=== PATIENT | female | born 1950 | race Caucasian/White ===

== ENCOUNTER → 2016-05-06 | Outpatient (CLI) | payer BC ==
[~2016-05-06] MED LIST: FRRG PO; FRRS300 PO; LISI20TA PO; OXYC1TAB3 PO; POTA10CA28 PO; PRM/45 PO; REVIEWED; SYN125 PO
[2016-05-06 09:52] LABS: BASO % 0.5 %; BASO ABS # 0.03 K/uL (0-0.2); COMPLETE YES; EOS % 2.7 %; HEMATOCRIT 40.8 % (37-47); IG% 1.4 %; LYMPH % 40.6 %; LYMPH ABS # 2.38 K/uL (1.2-3.4); MEAN CELL VOLUME 89.1 fL (80-100); MEAN CORPUSCULAR HEMOGLOBIN 31.4 pg (25-34); MEAN CORPUSCULAR HGB CONC 35.3 g/dl (32-36); MEAN PLATELET VOLUME 10.3 fL (7.4-10.4); MONO % 6.3 %; NEUT % 48.5 %; PLATELET COUNT 308 K/uL (130-400); RED BLOOD COUNT 4.58 M/uL (4.2-5.4); WHITE BLOOD COUNT 5.86 K/uL (4.8-10.8)
[2016-05-06 10:03] LABS: ESTIMATED AVERAGE GLUCOSE 114 mg/dl; HA1C FLAG Normal (Normal)
[2016-05-06 10:36] LABS: INSULIN FASTING 9.6 mU/L (3-25)
[2016-05-06 10:38] LABS: PROGESTERONE < 0.21 ng/mL
[2016-05-06 10:52] LABS: ALT/SGPT 36 U/L (12-78); AST/SGOT 18 U/L (15-37); BLOOD UREA NITROGEN 13 mg/dl (7-18); BUN/CREATININE RATIO 18.7 (10-20); CALCIUM 9.4 mg/dl (8.5-10.1); CARBON DIOXIDE 24 mmol/L (21-32); CHLORIDE 105 mmol/L (98-107); CREATININE 0.71 mg/dl (0.60-1.20); GLUCOSE 104 mg/dl (70-99); POTASSIUM 3.8 mmol/L (3.5-5.1); SODIUM 142 mmol/L (136-145)
[2016-05-06 11:02] LABS: ALB/GLOB RATIO 1.2 (0.9-2); ALKALINE PHOSPHATASE 69 U/L (45-117)
== END | disposition home or self-care (01) ==
LOC: C.LAB 07:14
PROVIDERS: ATTEND General Practice
DX: A69.20 Lyme disease, unspecified (principal); E11.00 Type 2 diabetes mellitus with hyperosmolarity without nonketotic hyperglycemic-hyperosmolar coma (NKHHC); E03.2 Hypothyroidism due to medicaments and other exogenous substances; N95.9 Unspecified menopausal and perimenopausal disorder; E55.9 Vitamin D deficiency, unspecified

== ENCOUNTER → 2016-07-27 | Outpatient (CLI) | payer BC ==
[2016-07-27 09:22] LABS: BASO % 0.6 %; BASO ABS # 0.03 K/uL (0-0.2); COMPLETE YES; EOS % 3.5 %; HEMATOCRIT 40.2 % (37-47); IG% 0.6 %; LYMPH % 39.2 %; LYMPH ABS # 1.91 K/uL (1.2-3.4); MEAN CELL VOLUME 87.8 fL (80-100); MEAN CORPUSCULAR HEMOGLOBIN 30.6 pg (25-34); MEAN CORPUSCULAR HGB CONC 34.8 g/dl (32-36); MEAN PLATELET VOLUME 10.6 fL (7.4-10.4); NEUT % 48.1 %; PLATELET COUNT 242 K/uL (130-400); RED BLOOD COUNT 4.58 M/uL (4.2-5.4); WHITE BLOOD COUNT 4.87 K/uL (4.8-10.8)
[2016-07-27 09:32] LABS: ALT/SGPT 28 U/L (12-78); AST/SGOT 17 U/L (15-37); BLOOD UREA NITROGEN 15 mg/dl (7-18); BUN/CREATININE RATIO 18.7 (10-20); CARBON DIOXIDE 28 mmol/L (21-32); CHLORIDE 103 mmol/L (98-107); CREATININE 0.78 mg/dl (0.60-1.20); GLUCOSE 106 mg/dl (70-99); POTASSIUM 3.6 mmol/L (3.5-5.1); SODIUM 140 mmol/L (136-145)
[2016-07-27 09:42] LABS: ALB/GLOB RATIO 1.2 (0.9-2); ALKALINE PHOSPHATASE 62 U/L (45-117); THYROID STIMULATING HORMONE 0.206 uIu/ml (0.300-4.500)
[2016-07-27 10:54] LABS: ESTIMATED AVERAGE GLUCOSE 114 mg/dl; HA1C FLAG Normal (Normal)
== END | disposition home or self-care (01) ==
LOC: C.LAB 07:02
PROVIDERS: ATTEND General Practice
DX: A69.20 Lyme disease, unspecified (principal); E72.11 Homocystinuria; E11.00 Type 2 diabetes mellitus with hyperosmolarity without nonketotic hyperglycemic-hyperosmolar coma (NKHHC); E03.2 Hypothyroidism due to medicaments and other exogenous substances

== ENCOUNTER → 2016-11-04 | Outpatient (CLI) | payer BC ==
[2016-11-04 09:34] LABS: BASO % 0.7 %; BASO ABS # 0.03 K/uL (0-0.2); COMPLETE YES; EOS % 3.6 %; HEMATOCRIT 41.6 % (37-47); IG% 0.4 %; LYMPH % 39.1 %; LYMPH ABS # 1.75 K/uL (1.2-3.4); MEAN CELL VOLUME 89.3 fL (80-100); MEAN CORPUSCULAR HEMOGLOBIN 30.3 pg (25-34); MEAN CORPUSCULAR HGB CONC 33.9 g/dl (32-36); MEAN PLATELET VOLUME 10.4 fL (7.4-10.4); MONO % 9.2 %; PLATELET COUNT 243 K/uL (130-400); RED BLOOD COUNT 4.66 M/uL (4.2-5.4); WHITE BLOOD COUNT 4.48 K/uL (4.8-10.8)
[2016-11-04 09:47] LABS: ALB/GLOB RATIO 1.2 (0.9-2); ALT/SGPT 35 U/L (12-78); AST/SGOT 18 U/L (15-37); BLOOD UREA NITROGEN 16 mg/dl (7-18); BUN/CREATININE RATIO 24.3 (10-20); CARBON DIOXIDE 26 mmol/L (21-32); CHLORIDE 109 mmol/L (98-107); CREATININE 0.66 mg/dl (0.60-1.20); GLUCOSE 104 mg/dl (70-99); SODIUM 141 mmol/L (136-145)
[2016-11-04 09:48] LABS: ALKALINE PHOSPHATASE 70 U/L (45-117)
[2016-11-04 09:56] LABS: ESTIMATED AVERAGE GLUCOSE 108 mg/dl; HA1C FLAG Normal (Normal)
[2016-11-04 10:12] LABS: INSULIN FASTING 17.6 mU/L (3-25)
[2016-11-08 14:03] LABS: CYTOMEGALOVIRUS IGG AB >10.00 U/ML; TESTOSTERONE,TOTAL 11 ng/dL (2-45)
== END | disposition home or self-care (01) ==
LOC: C.LAB 07:11
PROVIDERS: ATTEND General Practice
DX: E55.9 Vitamin D deficiency, unspecified (principal); B25.9 Cytomegaloviral disease, unspecified; A69.20 Lyme disease, unspecified; E72.11 Homocystinuria; E11.00 Type 2 diabetes mellitus with hyperosmolarity without nonketotic hyperglycemic-hyperosmolar coma (NKHHC); N95.9 Unspecified menopausal and perimenopausal disorder

== ENCOUNTER → 2016-12-07 | Outpatient (CLI) | payer BC | END | disposition home or self-care (01) | LOC: C.PAPS 14:08 | PROVIDERS: ATTEND Obstetrics & Gynecology | DX: Z01.419 Encounter for gynecological examination (general) (routine) without abnormal findings (principal) ==

== ENCOUNTER 2017-05-05 22:16 | Inpatient (IN) | payer OTHER ==
[~2017-05-05] VITALS: Ht 149.9 cm; Wt 67.9 kg
[2017-05-05] MEDS ORDERED: ASPIRIN 81 MG CHEW PO STA (22:29)
[2017-05-05] MEDS ORDERED: NITROGLYCERIN 0.4 MG SL PER TAB CHARGE ONE (22:30)
[2017-05-05] MEDS: NITROGLYCERIN 0.4 MG SL PER TAB CHARGE SL PRN ×2 (22:34→22:52)
--- NOTE | 2017-05-05 22:50 | EMERGENCY ROOM VISIT NOTE ---
History Report prepared by Inge: Rafael Guerra Under the Supervision of: Dr. Marily Doan M.D. First contact with patient: 22:29 Chief Complaint: CARDIAC ASSESSMENT Stated Complaint: CHEST PAINS History of Present Illness The patient is a 66 year old female who presents to the Emergency Room with complaints of constant left-sided chest pain beginning a few hours ago. The patient states she had a chemical stress test today, and it went great. She reports afterwards she developed left-sided chest pain. The patient notes she called her box hinge and lock attacher, and the test was read to show some ischemia. She states she was told to come to the ED immediately. The patient reports she received nitroglycerin, and it helped. She states she took Advil without relief. She notes her sister has had to have a stent placed. The patient denies a history of smoking, swelling in her legs, and pain during her stress test. Source of History: patient Onset: few hours ago Position: chest (left) Timing: constant Modifying Factors (Relieving): other (nitroglycerin) Note: Denies: swelling in her legs, pain during her stress test Review of Systems See HPI for pertinent positives & negatives. A total of 10 systems reviewed and were otherwise negative. Past Medical & Surgical Medical Problems: (1) Heart disease (2) HTN (hypertension) Family History Cancer Heart disease Hypertension Social History Smoking Status: Former Smoker Smokeless Tobacco Use: No Alcohol Use: none Marital Status: Housing Status: lives with significant other Occupation Status: employed Current/Historical Medications Scheduled Ascorbic Acid (Vitamin C), 2,000 MG PO DAILY Cholecalciferol (Vitamin D3), 5,000 CAP PO DAILY Ferrous Fumarate (Ferrimin 150), 150 MG PO DAILY Hctz/Lisinopril (PRINZIDE 20/12.5 Mg), 1 TAB PO BID Levothyroxine Sodium (Synthroid), 112 MCG PO DAILY Magnesium Oxide (Mg Supplement (Magnesium), 1,000 MG PO DAILY Potassium Chloride (Micro-K Ext Rel), 20 MEQ PO DAILY Turmeric (Curcuma Longa) (Turmeric), 1 TAB PO DAILY Allergies Coded Allergies: Codeine (Verified Allergy, Severe, "COULDN'T SLEEP FOR 3 DAYS-HYPER"., 03/12) [place] Blue FCF (Verified Allergy, Unknown, "CAN'T REMEMBER", 05/05/17) Erythrosine Red No. 3 (Verified Allergy, Unknown, "CAN'T REMEMBER", ) Guaifenesin (Verified Allergy, Unknown, "CAN'T REMEMBER", 05/05/17) Pseudoephedrine (Verified Allergy, Unknown, "CAN'T REMEMBER", 05/05/17) Physical Exam Vital Signs Date Time Temp Pulse Resp B/P (MAP) Pulse Ox O2 Delivery O2 Flow Rate FiO2 05/06/17 01:16 57 14 94 05/06/17 01:00 110/75 05/06/17 00:46 56 14 93 05/06/17 00:30 133/68 05/06/17 00:16 55 15 94 05/06/17 00:00 65 20 149/73 94 Room Air 05/06/17 00:00 149/73 05/05/17 23:46 59 21 95 05/05/17 23:30 120/67 05/05/17 23:16 57 18 94 05/05/17 23:00 124/87 05/05/17 22:57 66 20 157/77 Room Air 05/05/17 22:55 Room Air 05/05/17 22:46 66 18 96 05/05/17 22:39 63 05/05/17 22:33 157/77 05/05/17 22:20 36.6 62 20 174/84 96 Room Air Physical Exam Vital signs reviewed. General: Well-appearing 66 year old female, in no significant distress. HEENT: No scleral icterus, PERRLA, neck supple. Atraumatic. Cardiovascular: Regular rate and rhythm, no extra sounds. Pulmonary: Clear to auscultation bilaterally, normal work of breathing. Abdomen: Soft, nontender, nondistended, positive bowel sounds. Musculoskeletal: Atraumatic, no peripheral edema. Neurologic: Patient awake alert and oriented x 3 Skin: Warm, dry, no rash Medical Decision & Procedures ER Provider Diagnostic Interpretation: X-ray results as stated below per interpretation by me and the radiologist: CHEST ONE VIEW PORTABLE CLINICAL HISTORY: chest pain dyspnea COMPARISON STUDY: 04/16/2013 FINDINGS: The bones soft tissues and hemidiaphragms are normal. The cardiomediastinal silhouette is normal. The lungs are clear. The pulmonary vasculature is normal. IMPRESSION: Negative chest. The above report was generated using voice recognition software. It may contain grammatical, syntax or spelling errors. Electronically signed by: Shen Triplett M.D. 05/05/2017 10:48 PM Dictated Date/Time: 05/05/2017 10:48 PM Laboratory Results 05/05/17 22:45 Test 05/05/17 22:45 05/05/17 22:51 Immature Granulocyte % (Auto) 0.4 % White Blood Count 8.54 K/uL (4.8-10.8) Red Blood Count 4.57 M/uL (4.2-5.4) Hemoglobin 14.0 g/dL (12.0-16.0) Hematocrit 41.1 % (37-47) Mean Corpuscular Volume 89.9 fL (80-100) Mean Corpuscular Hemoglobin 30.6 pg (25-34) Mean Corpuscular Hemoglobin Concent 34.1 g/dl (32-36) Platelet Count 305 K/uL (130-400) Mean Platelet Volume 10.2 fL (7.4-10.4) Neutrophils (%) (Auto) 63.6 % Lymphocytes (%) (Auto) 26.6 % Monocytes (%) (Auto) 6.7 % Eosinophils (%) (Auto) 2.2 % Basophils (%) (Auto) 0.5 % Neutrophils # (Auto) 5.44 K/uL (1.4-6.5) Lymphocytes # (Auto) 2.27 K/uL (1.2-3.4) Monocytes # (Auto) 0.57 K/uL (0.11-0.59) Eosinophils # (Auto) 0.19 K/uL (0-0.5) Basophils # (Auto) 0.04 K/uL (0-0.2) Immature Granulocyte # (Auto) 0.03 K/uL (0.00-0.02) Prothrombin Time 10.0 SECONDS (9.0-12.0) Prothromb Time International Ratio 1.0 (0.9-1.1) Anion Gap 4.0 mmol/L (3-11) Est Creatinine Clear Calc Drug Dose 53.1 ml/min Estimated GFR () 79.9 Estimated GFR (Non- 68.9 BUN/Creatinine Ratio 21.1 (10-20) Calcium Level 9.0 mg/dl (8.5-10.1) Total Bilirubin 0.2 mg/dl (0.2-1) Direct Bilirubin < 0.1 mg/dl (0-0.2) Aspartate Amino Transf (AST/SGOT) 18 U/L (15-37) Alanine Aminotransferase (ALT/SGPT) 47 U/L (12-78) Alkaline Phosphatase 80 U/L (45-117) Total Protein 6.9 gm/dl (6.4-8.2) Albumin 3.7 gm/dl (3.4-5.0) Bedside Troponin I < 0.030 ng/ml (0-0.045) Laboratory results per my review. Medications Administered Medications (Trade) Dose Ordered Sig/Andrew Route Start Time Stop Time Status Last Admin Dose Admin Aspirin (Aspirin Chew) 324 mg NOW STAT PO 05/05/17 22:29 05/05/17 22:32 DC 05/05/17 22:54 324 MG Nitroglycerin (Nitrostat Tab) 0.4 mg Q5M PRN SL 05/05/17 22:30 05/06/17 03:28 DC 05/05/17 22:52 0.4 MG ECG Indication: chest pain Rate (beats per minute): 60 Rhythm: normal sinus Findings: other (ST change in the anterior leads, likely previous anterior infarct) Comparison ECG Date: 04/16/13 Change: no significant change ED Course 224: Past medical records reviewed. The patient was evaluated in room V09. A complete history and physical examination was performed. 9: Ordered Aspirin 324mg PO 2230: Ordered Nitroglycerin 0.4mg SL 2349: Upon reevaluation, the patient is resting comfortably. I discussed laboratory and radiographic results with her. She verbalized agreement of the treatment plan. The patient will be evaluated for further management and care. 0008: I discussed the patient's case with Dr. Thapa, [facility] Hospitalist. The patient will be evaluated for further management and care. Medical Decision Chest pain: Acute coronary syndrome, pulmonary embolus, aortic dissection, musculoskeletal pain, pneumonia, pleural effusion, pneumothorax This pt was evaluated and seemed anxious, but in no distress. IV access was obtained and lab work was drawn. PT was placed on the cardiac cath tech. EKG reveals no acute changes. There is no elevation of the troponin. CXR is clear. Pt did receive ASA in the ED. A NTG did relieve a mild discomfort. Given recent abnl stress test outpt [facility] pt was d/w the hospitalist for further management. She is aware of the plan and agrees. Medication Reconcilliation Current Medication List: was personally reviewed by me Blood Pressure Screening Patient's blood pressure: Elevated blood pressure Monitored by hospitalist. Consults Time Called: [phone] Consulting Physician: Dr. Thapa, [facility] Hospitalist Returned Call: [phone] I discussed the patient's case with Dr. Thapa, [facility] Hospitalist. The patient will be evaluated for further management and care. Impression Primary Impression: Substernal chest pain Additional Impression: Abnormal nuclear stress test Scribe Attestation The scribe's documentation has been prepared under my direction and personally reviewed by me in its entirety. I confirm that the note above accurately reflects all work, treatment, procedures, and medical decision making performed by me. Departure Information Dispostion Being Evaluated By Hospitalist Referrals Sriram Beckman Jr,D.O. (PCP) Patient Instructions [facility] Problem Qualifiers
[2017-05-05 23:05] LABS: BASO % 0.5 %; BASO ABS # 0.04 K/uL (0-0.2); EOS % 2.2 %; EOS ABS # 0.19 K/uL (0-0.5); HEMATOCRIT 41.1 % (37-47); IG# 0.03 K/uL (0.00-0.02); LYMPH % 26.6 %; LYMPH ABS # 2.27 K/uL (1.2-3.4); MEAN CELL VOLUME 89.9 fL (80-100); MEAN CORPUSCULAR HEMOGLOBIN 30.6 pg (25-34); MEAN CORPUSCULAR HGB CONC 34.1 g/dl (32-36); MEAN PLATELET VOLUME 10.2 fL (7.4-10.4); MONO % 6.7 %; MONO ABS # 0.57 K/uL (0.11-0.59); NEUT % 63.6 %; NEUT ABS # 5.44 K/uL (1.4-6.5); PLATELET COUNT 305 K/uL (130-400); RED CELL DISTRIBUTION WIDTH CV 12.6 % (11.5-14.5); RED CELL DISTRIBUTION WIDTH SD 41.2 fL (36.4-46.3); WHITE BLOOD COUNT 8.54 K/uL (4.8-10.8)
[2017-05-05] MEDS ORDERED: CHOLCAP5 PO (23:25)
[2017-05-05] MEDS ORDERED: LSN/20125 PO (23:25)
[2017-05-05] MEDS ORDERED: LEVO112T2 PO (23:25)
[2017-05-05] MEDS ORDERED: TURM500T PO (23:25)
[2017-05-05] MEDS ORDERED: MAGN500T4 PO (23:25)
[2017-05-05] MEDS ORDERED: ASCO10003 PO (23:25)
[2017-05-05] MEDS ORDERED: FERRTAB6 PO (23:25)
[2017-05-05 23:26] LABS: ALBUMIN 3.7 gm/dl (3.4-5.0); ALT/SGPT 47 U/L (12-78); AST/SGOT 18 U/L (15-37); BLOOD UREA NITROGEN 18 mg/dl (7-18); CARBON DIOXIDE 31 mmol/L (21-32); CREATININE 0.87 mg/dl (0.60-1.20); GLUCOSE 125 mg/dl (70-99); POTASSIUM 3.5 mmol/L (3.5-5.1); SODIUM 140 mmol/L (136-145)
[2017-05-05 23:31] LABS: ALKALINE PHOSPHATASE 80 U/L (45-117); CKMB 2.9 ng/ml (0.5-3.6); TOTAL PROTEIN 6.9 gm/dl (6.4-8.2)
[2017-05-06] VITALS (8 sets, daily range): BP systolic 113–147; BP diastolic 67–82; PULSE 56–74; TEMP 36.2–36.6; O2SAT 94–96; Ht 149.9 cm; Wt 67.9 kg
[2017-05-06] MEDS ORDERED: ACETAMINOPHEN 325 MG TAB PO PRN (02:00)
[2017-05-06] MEDS ORDERED: NITROGLYCERIN 0.4 MG SL PER TAB CHARGE SL PRN (02:00)
[2017-05-06] MEDS ORDERED: HEPARIN 25000 UNIT/500 ML D5W ONE (02:09)
[2017-05-06 02:32] LABS: PTT PATIENT 26.3 SECONDS (21.0-31.0)
[2017-05-06] MEDS: NITROGLYCERIN 2% OINTMENT 30GM TUBE EXT SCH ×4 (03:38→22:00)
[2017-05-06] MEDS ORDERED: IV FLUIDS COMPLETED PRN (03:45)
[2017-05-06 04:35] LABS: CKMB 2.3 ng/ml (0.5-3.6)
--- NOTE | 2017-05-06 04:56 | History and Physical ---
History & Physical Date & Time of Service: May 06, 2017 at 04:45 Chief Complaint: Abnormal Nuclear Stress Test,Substernal Chest Pain Primary Care Physician: Sriram Beckman Jr,D.O. History of Present Illness Source: patient, hospital records The patient is a 66-year-old female who had a chemical stress test performed earlier in the day by clinical nurse educator Dr. Smith, that she felt had gone well. Later in the day, she developed severe left sided chest pain, had then called her clinical nurse educator, who then referred her to the ED immediately after reviewing the above-mentioned stress test and reportedly had an abnormal finding. The patient did receive nitroglycerin in the ED, that she reports did help. Earlier in the day she had taken Advil without relief. She does have a family history of a sister who had to have a coronary artery stent placed. Past Medical/Surgical History Medical Problems: (1) Heart disease Status: Chronic (2) HTN (hypertension) Status: Chronic Family History Cancer Heart disease Hypertension Social History Smoking Status: Never Smoker Smokeless Tobacco Use: No Alcohol Use: none Drug Use: none Marital Status: Housing status: lives with family Occupational Status: employed Immunizations History of Influenza Vaccine: Unknown History of Tetanus Vaccine?: Unknown History of Pneumococcal: Unknown History of Hepatitis B Vaccine: Unknown Multi-Drug Resistant Organisms History of MDRO: No Allergies Coded Allergies: Codeine (Verified Allergy, Severe, "COULDN'T SLEEP FOR 3 DAYS-HYPER"., 03/12) [place] Blue FCF (Verified Allergy, Unknown, "CAN'T REMEMBER", 05/05/17) Erythrosine Red No. 3 (Verified Allergy, Unknown, "CAN'T REMEMBER", ) Guaifenesin (Verified Allergy, Unknown, "CAN'T REMEMBER", 05/05/17) Pseudoephedrine (Verified Allergy, Unknown, "CAN'T REMEMBER", 05/05/17) Home Medications Scheduled Ascorbic Acid (Vitamin C), 2,000 MG PO DAILY Cholecalciferol (Vitamin D3), 5,000 CAP PO DAILY Ferrous Fumarate (Ferrimin 150), 150 MG PO DAILY Hctz/Lisinopril (PRINZIDE 20/12.5 Mg), 1 TAB PO BID Levothyroxine Sodium (Synthroid), 112 MCG PO DAILY Magnesium Oxide (Mg Supplement (Magnesium), 1,000 MG PO DAILY Potassium Chloride (Micro-K Ext Rel), 20 MEQ PO DAILY Turmeric (Curcuma Longa) (Turmeric), 1 TAB PO DAILY Review of Systems The patient denies palpitations, shortness of breath, dyspnea on exertion, cough , lower extremity swelling, sore throat, fevers, chills, sweats, weight change, fatigue, nausea, vomiting, diarrhea , constipation, abdominal pain, pelvic pain, blood in urine or stool, dysuria, urinary frequency or urgency, lightheadedness , dizziness, headache, memory loss, loss of consciousness, rash, abnormal bruising or bleeding, imbalance, focal or generalized weakness, numbness or tingling in arms or legs, generalized arthralgias or myalgias, back or neck pain, or night sweats. The review of systems is otherwise negative other than for that already noted above, and at least 10 systems have been reviewed. Physical Exam Vital Signs Date Time Temp Pulse Resp B/P (MAP) Pulse Ox O2 Delivery O2 Flow Rate FiO2 05/06/17 03:41 36.5 74 18 147/82 95 Room Air 05/06/17 02:25 57 20 142/84 96 Room Air 05/06/17 01:46 63 16 90 05/06/17 01:30 137/70 05/06/17 01:16 57 14 94 05/06/17 01:00 110/75 05/06/17 00:46 56 14 93 05/06/17 00:30 133/68 05/06/17 00:16 55 15 94 05/06/17 00:00 65 20 149/73 94 Room Air 05/06/17 00:00 149/73 05/05/17 23:46 59 21 95 05/05/17 23:30 120/67 05/05/17 23:16 57 18 94 05/05/17 23:00 124/87 05/05/17 22:57 66 20 157/77 Room Air 05/05/17 22:55 Room Air 05/05/17 22:46 66 18 96 05/05/17 22:39 63 05/05/17 22:33 157/77 05/05/17 22:20 36.6 62 20 174/84 96 Room Air The patient is awake, alert and oriented 3, well developed and well nourished, normocephalic and atraumatic, lying in bed and in no acute distress. HEENT--PERRL, EOMI, mucous membranes and oropharynx dry. Neck--supple. No JVD. No bruits. Thyroid normal, trachea midline, no adenopathy. Heart--normal S1 and S2. No murmurs, rubs or gallops. Lungs--clear bilaterally, no respiratory distress, no accessory muscle use. Abdomen--normal bowel sounds and soft. Nontender. Nondistended, no hernias or masses, no organomegaly. Extremities--no cyanosis or clubbing. No edema. There are good distal pulses b/ l. Dermatologic--normal skin turgor, normal color, no abnormal lymph nodes, no rash. Neurologic--cranial nerves II through XII grossly intact. Rheumatologic--normal range of motion. Psychiatric--normal affect. Diagnostics Laboratory Results Results Past 24 Hours Test 05/05/17 22:45 05/05/17 22:51 05/06/17 03:24 05/06/17 04:18 Range/Units White Blood Count 8.54 4.8-10.8 K/uL Red Blood Count 4.57 4.2-5.4 M/uL Hemoglobin 14.0 12.0-16.0 g/dL Hematocrit 41.1 37-47 % Mean Corpuscular Volume 89.9 80-100 fL Mean Corpuscular Hemoglobin 30.6 25-34 pg Mean Corpuscular Hemoglobin Concent 34.1 32-36 g/dl Platelet Count 305 130-400 K/uL Mean Platelet Volume 10.2 7.4-10.4 fL Neutrophils (%) (Auto) 63.6 % Lymphocytes (%) (Auto) 26.6 % Monocytes (%) (Auto) 6.7 % Eosinophils (%) (Auto) 2.2 % Basophils (%) (Auto) 0.5 % Neutrophils # (Auto) 5.44 1.4-6.5 K/uL Lymphocytes # (Auto) 2.27 1.2-3.4 K/uL Monocytes # (Auto) 0.57 0.11-0.59 K/uL Eosinophils # (Auto) 0.19 0-0.5 K/uL Basophils # (Auto) 0.04 0-0.2 K/uL RDW Standard Deviation 41.2 36.4-46.3 fL RDW Coefficient of Variation 12.6 11.5-14.5 % Immature Granulocyte % (Auto) 0.4 % Immature Granulocyte # (Auto) 0.03 0.00-0.02 K/uL Prothrombin Time 10.0 9.0-12.0 SECONDS Prothromb Time International Ratio 1.0 0.9-1.1 Activated Partial Thromboplast Time 26.3 21.0-31.0 SECONDS Partial Thromboplastin Ratio 1.0 Sodium Level 140 136-145 mmol/L Potassium Level 3.5 3.5-5.1 mmol/L Chloride Level 105 98-107 mmol/L Carbon Dioxide Level 31 21-32 mmol/L Anion Gap 4.0 3-11 mmol/L Blood Urea Nitrogen 18 7-18 mg/dl Creatinine 0.87 0.60-1.20 mg/dl Est Creatinine Clear Calc Drug Dose 53.1 ml/min Estimated GFR () 79.9 Estimated GFR (Non- 68.9 BUN/Creatinine Ratio 21.1 10-20 Random Glucose 125 70-99 mg/dl Calcium Level 9.0 8.5-10.1 mg/dl Total Bilirubin 0.2 0.2-1 mg/dl Direct Bilirubin < 0.1 0-0.2 mg/dl Aspartate Amino Transf (AST/SGOT) 18 15-37 U/L Alanine Aminotransferase (ALT/SGPT) 47 12-78 U/L Alkaline Phosphatase 80 45-117 U/L Total Creatine Kinase 97 81 26-192 U/L Creatine Kinase MB 2.9 2.3 0.5-3.6 ng/ml Creatine Kinase MB Ratio 3.0 2.8 0-3.0 Total Protein 6.9 6.4-8.2 gm/dl Albumin 3.7 3.4-5.0 gm/dl Bedside Troponin I < 0.030 0-0.045 ng/ml Troponin I < 0.015 0-0.045 ng/ml Diagnostic Radiology Patient Name: VIJAY MCDANIEL Unit Number: [id number] Dictated: 05/05/172247 Transcribed: 05/05/172247 MS Printed Date/Time: [~ rep prt dt]/[~ rep prt tm] [~ rep ct labl] - [~ rep ct ivnm] [facility] [place] [address] Dictated: 05/05/172247 Transcribed: 05/05/172247 MS Printed Date/Time: [~ rep prt dt]/[~ rep prt tm] [~ rep ct labl] - [~ rep ct ivnm] CHEST ONE VIEW PORTABLE CLINICAL HISTORY: chest pain dyspnea COMPARISON STUDY: 04/16/2013 FINDINGS: The bones soft tissues and hemidiaphragms are normal. The cardiomediastinal silhouette is normal. The lungs are clear. The pulmonary vasculature is normal. IMPRESSION: Negative chest. The above report was generated using voice recognition software. It may contain grammatical, syntax or spelling errors. Electronically signed by: Shen Triplett M.D. 05/05/2017 10:48 PM Dictated Date/Time: 05/05/2017 10:48 PM The status of this report is Signed. Draft = Not yet reviewed or approved by Radiologist. Signed = Reviewed and approved by Radiologist. <AttendingPhy></AttendingPhy> <FamilyPhy></FamilyPhy> <PrimaryPhy>Sriram Beckman Jr,D.O.</PrimaryPhy> <UnitNumber>[id number]</UnitNumber> <VisitNumber> [id number]</VisitNumber> <PatientName>VIOLETAVIJAY</PatientName> < DateOfBirth>1950</DateOfBirth> <Location>C.EDB</Location> <ServiceDate>03/12</ServiceDate> <MNE>ESINDI</MNE> <OrderingPhy>Marily Doan M.D.</ OrderingPhy> <OrderingPhyMNE>f rep ord dr avalos</OrderingPhyMNE> <DictatingPhyMNE> f rep dict dr avalos</DictatingPhyMNE> <CCListMNE>f rep ct mne</CCListMNE> < AdmittingPhyMNE>f pt admit dr avalos</AdmittingPhyMNE> <AttendingPhyMNE>f pt attend dr avalos</AttendingPhyMNE> <ConsultingPhyMNE>f pt consult dr avalos</ConsultingPhyMNE> <FamilyPhyMNE>f pt fam dr avalos</FamilyPhyMNE> <OtherPhyMNE>f pt other dr avalos</OtherPhyMNE> < PrimaryPhyMNE>f pt prim care dr avalos</PrimaryPhyMNE> <ReferringPhyMNE>f pt referring dr avalos</ReferringPhyMNE> Impression Assessment and Plan Left-sided chest pain with abnormal chemical stress test prior to arrival-- The patient will be admitted to telemetry for serial cardiac enzymes, serial EKG's, and cardiac rhythm monitoring. Start heparin drip IV standard concentration per protocol without bolus Consult her clinical nurse educator Dr. Smith Place on aspirin 81 mg daily continue lisinopril/HCTZ 20/12.5 mg by mouth twice a day Continue potassium chloride 20 mEq by mouth daily and mag oxide 40 mg by mouth twice a day. Serial BMP and magnesium levels Hypothyroidism-- Continue levothyroxine sodium 112 g by mouth daily. Level of Care Telemetry Advanced Directives Existing Advance Directive: No Existing Living Will: No Existing Power of Sectionizer: No Resuscitation Status FULL RESUSCITATION VTE Prophylaxis VTE Risk Assessment Done? Y/N: Yes Risk Level: Moderate Given or contraindicated: Other Anticoagulation (heparin IV standard dose no bolus per protocol)
[2017-05-06] MEDS: LEVOTHYROXINE 112 MCG TAB PO SCH (06:33)
[2017-05-06] MEDS: HEPARIN 25,000 UNIT/500ML D5W 500 ML IV PRN ×4 (06:54→22:38)
[2017-05-06 07:44] LABS: HEMOGLOBIN A1C 5.6 % (4.5-5.6)
[2017-05-06] MEDS: MAGNESIUM OXIDE 400 MG TAB PO SCH ×2 (07:54→21:04)
[2017-05-06] MEDS: FERROUS FUMARATE CONTR REL CAP 65 MG CAPCR PO SCH (07:54)
[2017-05-06] MEDS: CHOLECALCIFEROL 1000 INTER.UNIT TAB PO SCH (07:55)
[2017-05-06] MEDS: POTASSIUM CHLORIDE 10 MEQ TABCR PO SCH (07:55)
[2017-05-06] MEDS: ASPIRIN 81 MG ECTAB PO SCH (07:55)
[2017-05-06] MEDS: LISINOPRIL/HCTZ 20/12.5MG TAB PO SCH ×2 (07:55→21:04)
[2017-05-06 08:42] LABS: PTT PATIENT 42.2 SECONDS (21.0-31.0)
[2017-05-06 09:04] LABS: CKMB 1.8 ng/ml (0.5-3.6)
[2017-05-06] MEDS ORDERED: HEPARIN IV BOLUS 2,000 UNIT in SYRINGE 0 ML IV ONE (10:00)
--- NOTE | 2017-05-06 10:18 | CARDIOLOGY CONSULTATION ---
DATE OF CONSULTATION: 05/06/2017 REFERRING PHYSICIAN: Talib Thapa MD. REASON FOR CONSULTATION: Chest pain. HISTORY OF PRESENT ILLNESS: Ms. Ly is a 66-year-old female who is known to the [facility]. I recently evaluated the patient on April 08. At that time, the patient had been complaining of intermittent dyspnea on exertion. She has a newly diagnosed left bundle branch block. A nuclear stress test was performed on 05/05/2017 and was positive for apical ischemia. Last evening at approximately 11:00 p.m., patient contacted me via phone. She was complaining of chest discomfort. She was advised to come to the Emergency Department. In the ER, she was treated with sublingual nitroglycerin with relief of her discomfort. She is currently pain free. Her ECG demonstrated sinus rhythm with lateral T-wave inversion. Normal LV systolic function with normal wall motion noted per nuclear stress test performed yesterday. An echocardiogram was not performed today. Her cardiac enzymes are negative. No dysrhythmias on telemetry. She carries a history of rate related bundle branch block. REVIEW OF SYSTEMS: The pertinent positive noted above, a comprehensive 10-system review is otherwise negative. PAST MEDICAL HISTORY: 1. Mild carotid vascular disease. 2. Rate related left bundle branch block. 3. Hypothyroidism. 4. Hypertension. 5. Aortic insufficiency -- mild. 6. Colon polyp. 7. Breast hypertrophy. 8. Hypothyroidism. 9. Chronic fatigue. PAST SURGICAL HISTORY: 1. Colonoscopy. 2. Breast reduction surgery. SOCIAL HISTORY: Lifelong nonsmoker. She does not use alcohol or drugs. FAMILY HISTORY: Negative for premature coronary artery disease or sudden cardiac . ALLERGIES: ETHANOL. OUTPATIENT MEDICATIONS: 1. Zestoretic 13/04.5 twice daily. 2. Metformin ER 500 mg daily. 3. Synthroid 112 mcg daily. 4. Doxycycline 100 mg twice daily. 5. Premarin cream twice weekly. 6. Potassium chloride 10 mEq, 2 tablets daily. 7. [place] 3 fatty acids daily. 8. Aspirin 81 mg daily. ECHOCARDIOGRAM ON ADMISSION: Sinus bradycardia, lateral T-wave inversion. LABORATORY DATA: White blood cell count 8.54, hemoglobin is 14.0, platelet count is 305. Troponins are negative x3 sets. Triglycerides are 84, total cholesterol is 206, LDL is 136, HDL is 53. APTT 42.2 this morning. Hemoglobin A1c is 5.6. Hepatitis screen is negative. Chest x-ray on admission: No acute disease. PHYSICAL EXAMINATION: VITAL SIGNS: Temperature of 36.5 degrees centigrade, pulse 64 beats per minute and regular, respiratory rate is 18 breaths per minute, blood pressure 127/72, SaO2 is 96% on room air. GENERAL: NAD, awake, alert and oriented x3. HEENT: Mucous membranes are moist. No scleral icterus. Conjunctivae are pink. NECK: Supple without JVD or HJR. No carotid bruit. HEART: Regular with a normal S1 and S2. There is no murmur, rub, or gallop. LUNGS: Clear without rales, rhonchi or wheeze. ABDOMEN: Soft, nontender. No rebound or guarding. NEUROLOGIC: Demonstrates no focal deficit. FINAL IMPRESSION: 1. A 66-year-old female with unstable angina and abnormal Lexiscan, nuclear stress test performed yesterday is positive for apical ischemia. The patient currently chest-pain free. Cardiac enzymes are negative. 2. Preserved left ventricular systolic function with normal wall motion. 3. Mild aortic insufficiency. 4. Dyslipidemia -- untreated, patient has declined statin therapy in the past. 5. Mild carotid vascular disease per history. 6. Intermittent left bundle branch block. PLAN AND RECOMMENDATIONS: I had a long discussion with the patient regarding her symptoms and results of Lexiscan nuclear stress testing suggesting ischemic heart disease. I have recommended cardiac catheterization with coronary angiography and possible percutaneous intervention if indicated. She is reluctant to proceed with procedure. She is declining procedure at [facility] due to lack of surgical backup at this facility. The patient will be transferred to [facility] for cardiac catheterization. She will continue intravenous heparin infusion at this time. She will also continue aspirin. Statins will be added. Telemetry monitoring will be continued. Thank you for allowing me to participate in the care of your patient.
--- NOTE | 2017-05-06 14:22 | Progress Note ---
Subjective Date of Service: May 06, 2017. Subjective Pt evaluation today including: conversation w/ patient, conversation w/ family , physical exam, lab review, conversation w/ validation consultant, review of inpatient medication list Pain: no chest pain PO Intake: adequate Voiding: no voiding problems patient resting comfortably today, no further chest pain discussed with Dr. Smith, he had talked with patient, arranged to go to [place] patient changed her mind, would like to stay here for heart catheterization on Tuesday discussed with all involved, including her family in the room and Dr. Smith Problem List Medical Problems: (1) Abnormal nuclear stress test Status: Acute (2) Substernal chest pain Status: Acute Review of Systems All Other Systems: Reviewed and Negative Medications Current Inpatient Medications Medications (Trade) Dose Ordered Sig/Andrew Route Start Time Stop Time Status Last Admin Dose Admin Acetaminophen (Tylenol Tab) 650 mg Q4H PRN PO 05/06/17 02:00 06/05/17 01:59 Nitroglycerin (Nitrostat Tab) 0.4 mg UD PRN SL 05/06/17 02:00 06/05/17 01:59 Nitroglycerin (Nitroglycerin 2% Oint) 1 inch Q6H EXT 05/06/17 04:00 06/05/17 03:59 05/06/17 10:04 1 INCH Aspirin (Ecotrin Tab) 81 mg QAM PO 05/06/17 09:00 06/05/17 08:59 05/06/17 07:55 81 MG HCTZ/Lisinopril (Prinzide 20-12.5MG Tab) 1 tab BID PO 05/06/17 09:00 06/05/17 08:59 05/06/17 07:55 1 TAB Levothyroxine Sodium (Synthroid Tab) 112 mcg DAILYBB PO 05/06/17 06:30 06/05/17 06:29 05/06/17 06:33 112 MCG Potassium Chloride (Klor-Con M10) 20 meq DAILY PO 05/06/17 09:00 06/05/17 08:59 05/06/17 07:55 20 MEQ Ferrous Fumarate (Mariaelena-Sequels Contr Rel Cap) 65 mg DAILY PO 05/06/17 09:00 06/05/17 08:59 05/06/17 07:54 65 MG Cholecalciferol (Vitamin D Tab) 5,000 inter.unit QAM PO 05/06/17 09:00 06/05/17 08:59 05/06/17 07:55 5,000 INTER.UNIT Magnesium Oxide (Mag-Ox Tab) 400 mg BID PO 05/06/17 09:00 06/05/17 08:59 05/06/17 07:54 400 MG Heparin Sodium/ Dextrose 500 ml @ 22 mls/hr [id number] PRN IV 05/06/17 02:30 06/05/17 02:29 05/06/17 09:20 20 MLS/HR Miscellaneous (Iv Fluids Completed) 1 ea PRN PRN N/A 05/06/17 03:45 05/06/18 03:44 Objective Vital Signs Date Time Temp Pulse Resp B/P (MAP) Pulse Ox O2 Delivery O2 Flow Rate FiO2 05/06/17 12:00 94 Room Air 05/06/17 11:33 36.5 56 18 115/68 (84) 94 Room Air 05/06/17 11:30 36.2 73 16 113/68 (83) 96 05/06/17 10:00 36.6 65 20 119/67 (84) 95 Room Air 05/06/17 08:00 96 Room Air 05/06/17 07:43 36.5 64 18 127/72 (90) 96 Room Air 05/06/17 03:41 36.5 74 18 147/82 95 Room Air 05/06/17 02:25 57 20 142/84 96 Room Air 05/06/17 01:46 63 16 90 05/06/17 01:30 137/70 05/06/17 01:16 57 14 94 05/06/17 01:00 110/75 05/06/17 00:46 56 14 93 05/06/17 00:30 133/68 05/06/17 00:16 55 15 94 05/06/17 00:00 65 20 149/73 94 Room Air 05/06/17 00:00 149/73 05/05/17 23:46 59 21 95 05/05/17 23:30 120/67 05/05/17 23:16 57 18 94 05/05/17 23:00 124/87 05/05/17 22:57 66 20 157/77 Room Air 05/05/17 22:55 Room Air 05/05/17 22:46 66 18 96 05/05/17 22:39 63 05/05/17 22:33 157/77 05/05/17 22:20 36.6 62 20 174/84 96 Room Air Physical Exam General Appearance: WD/WN, no apparent distress Eyes: normal inspection, EOMI, sclerae normal ENT: normal ENT inspection, hearing grossly normal, pharynx normal Neck: supple, no adenopathy, no JVD, trachea midline Respiratory/Chest: chest non-tender, lungs clear, normal breath sounds, no respiratory distress, no accessory muscle use Cardiovascular: regular rate, rhythm, no edema, no gallop, no JVD, no murmur Abdomen: normal bowel sounds, non tender, soft, no organomegaly Extremities: normal range of motion, non-tender, normal inspection, no pedal edema, no calf tenderness, pelvis stable 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, no motor/sensory deficits, alert, normal mood/affect, oriented x 3 Skin: normal color, warm/dry, no rash Laboratory Results Last 24 Hours Test 05/05/17 22:45 05/05/17 22:51 05/06/17 03:24 05/06/17 05:41 White Blood Count 8.54 K/uL Red Blood Count 4.57 M/uL Hemoglobin 14.0 g/dL Hematocrit 41.1 % Mean Corpuscular Volume 89.9 fL Mean Corpuscular Hemoglobin 30.6 pg Mean Corpuscular Hemoglobin Concent 34.1 g/dl Platelet Count 305 K/uL Mean Platelet Volume 10.2 fL Neutrophils (%) (Auto) 63.6 % Lymphocytes (%) (Auto) 26.6 % Monocytes (%) (Auto) 6.7 % Eosinophils (%) (Auto) 2.2 % Basophils (%) (Auto) 0.5 % Neutrophils # (Auto) 5.44 K/uL Lymphocytes # (Auto) 2.27 K/uL Monocytes # (Auto) 0.57 K/uL Eosinophils # (Auto) 0.19 K/uL Basophils # (Auto) 0.04 K/uL RDW Standard Deviation 41.2 fL RDW Coefficient of Variation 12.6 % Immature Granulocyte % (Auto) 0.4 % Immature Granulocyte # (Auto) 0.03 K/uL Prothrombin Time 10.0 SECONDS Prothromb Time International Ratio 1.0 Activated Partial Thromboplast Time 26.3 SECONDS Partial Thromboplastin Ratio 1.0 Sodium Level 140 mmol/L Potassium Level 3.5 mmol/L Chloride Level 105 mmol/L Carbon Dioxide Level 31 mmol/L Anion Gap 4.0 mmol/L Blood Urea Nitrogen 18 mg/dl Creatinine 0.87 mg/dl Est Creatinine Clear Calc Drug Dose 53.1 ml/min Estimated GFR () 79.9 Estimated GFR (Non- 68.9 BUN/Creatinine Ratio 21.1 Random Glucose 125 mg/dl Calcium Level 9.0 mg/dl Total Bilirubin 0.2 mg/dl Direct Bilirubin < 0.1 mg/dl Aspartate Amino Transf (AST/SGOT) 18 U/L Alanine Aminotransferase (ALT/SGPT) 47 U/L Alkaline Phosphatase 80 U/L Total Creatine Kinase 97 U/L 81 U/L Creatine Kinase MB 2.9 ng/ml 2.3 ng/ml Creatine Kinase MB Ratio 3.0 2.8 Total Protein 6.9 gm/dl Albumin 3.7 gm/dl Bedside Troponin I < 0.030 ng/ml Troponin I < 0.015 ng/ml Estimated Average Glucose 114 mg/dl Hemoglobin A1c 5.6 % Triglycerides Level 84 mg/dl Cholesterol Level 206 mg/dl HDL Cholesterol 53 mg/dl LDL Cholesterol, Calculated 136 mg/dl VLDL Cholesterol, Calculated 17 mg/dl Cholesterol/HDL Ratio 3.9 Test 05/06/17 08:22 Activated Partial Thromboplast Time 42.2 SECONDS Partial Thromboplastin Ratio 1.6 Total Creatine Kinase 71 U/L Creatine Kinase MB 1.8 ng/ml Creatine Kinase MB Ratio 2.5 Troponin I < 0.015 ng/ml Hepatitis C Antibody Screen NEG Assessment and Plan 66 yo female who presented with chest pain, intermittent, prior to admission had a nuclear stress test as outpatient that was abnormal - Chest pain with recent abnormal nuclear stress test will continue on aspirin, heparin gtt over the weekend troponin negative x 3 no significant changes on EKG plan for LHC on Tuesday 05/09, NPO after midnight on Tuesday night - HTN: Lisinopril/HCTZ - Dyslipidemia: patient has refused statins in the past - Hypothyroidism: continue Synthroid may ambulate in the halls full code
[2017-05-06 15:58] LABS: PTT PATIENT 57.8 SECONDS (21.0-31.0)
[2017-05-06 19:40] LABS: CKMB 1.9 ng/ml (0.5-3.6)
[2017-05-07] VITALS (8 sets, daily range): BP systolic 103–145; BP diastolic 61–82; PULSE 54–82; TEMP 36.2–36.6; O2SAT 93–96
[2017-05-07] MEDS: NITROGLYCERIN 2% OINTMENT 30GM TUBE EXT SCH ×4 (04:00→21:40)
[2017-05-07] MEDS: LEVOTHYROXINE 112 MCG TAB PO SCH (06:10)
[2017-05-07 08:09] LABS: HEMATOCRIT 39.3 % (37-47); HEMOGLOBIN 13.6 g/dL (12.0-16.0); MEAN CELL VOLUME 90.3 fL (80-100); MEAN CORPUSCULAR HEMOGLOBIN 31.3 pg (25-34); MEAN CORPUSCULAR HGB CONC 34.6 g/dl (32-36); MEAN PLATELET VOLUME 9.9 fL (7.4-10.4); PLATELET COUNT 271 K/uL (130-400); RED CELL DISTRIBUTION WIDTH CV 12.7 % (11.5-14.5); RED CELL DISTRIBUTION WIDTH SD 41.8 fL (36.4-46.3); WHITE BLOOD COUNT 6.68 K/uL (4.8-10.8)
[2017-05-07] MEDS: LISINOPRIL/HCTZ 20/12.5MG TAB PO SCH ×2 (08:30→21:05)
[2017-05-07] MEDS: CHOLECALCIFEROL 1000 INTER.UNIT TAB PO SCH (08:31)
[2017-05-07] MEDS: ASPIRIN 81 MG ECTAB PO SCH (08:31)
[2017-05-07] MEDS: POTASSIUM CHLORIDE 10 MEQ TABCR PO SCH (08:33)
[2017-05-07] MEDS: FERROUS FUMARATE CONTR REL CAP 65 MG CAPCR PO SCH (08:33)
[2017-05-07] MEDS: MAGNESIUM OXIDE 400 MG TAB PO SCH ×2 (08:33→21:39)
[2017-05-07 08:38] LABS: PTT PATIENT 55.1 SECONDS (21.0-31.0)
--- NOTE | 2017-05-07 13:32 | PROGRESS NOTE ---
DATE: 05/07/2017 CARDIOLOGY CONSULTATION FOLLOWUP NOTE The patient seen and examined. Chart, medications, laboratory studies reviewed. SUBJECTIVE: The patient has had no chest pain or discomfort overnight, no arrhythmias. Notes no dizziness or lightheadedness. Notes no syncope or near syncope. OBJECTIVE: VITAL SIGNS: Heart rate is 64, blood pressure is 124/80. NECK: Thin. There is no jugular venous distention. No carotid bruits. LUNGS: Clear. CARDIOVASCULAR: Right radial pulse and ulnar pulses were intact. EXTREMITIES: Without edema. LABORATORY DATA: Troponins are negative x3. DATA: EKG this morning reveals sinus rhythm, poor R-wave progression across the anterior precordial leads, otherwise normal tracing. IMPRESSION: A 66-year-old female with cardiac risk factors with family history of heart disease with abnormal stress testing and new symptoms. It has been recommended she undergo diagnostic cardiac catheterization, discussed once again with the patient. Anticipate proceeding with diagnostic cardiac catheterization on Tuesday. Procedure and risks have been explained in detail with the patient. The patient will be kept n.p.o. after midnight on Tuesday.
--- NOTE | 2017-05-07 15:32 | Progress Note ---
Subjective Date of Service: May 07, 2017. Subjective Pt evaluation today including: conversation w/ patient, physical exam, review of inpatient medication list Pain: no chest pain PO Intake: adequate Voiding: no voiding problems no new issues, no chest pain, patient sitting in bed has been walking the halls Problem List Medical Problems: (1) Abnormal nuclear stress test Status: Acute (2) Substernal chest pain Status: Acute Review of Systems All Other Systems: Reviewed and Negative Medications Current Inpatient Medications Medications (Trade) Dose Ordered Sig/Andrew Route Start Time Stop Time Status Last Admin Dose Admin Acetaminophen (Tylenol Tab) 650 mg Q4H PRN PO 05/06/17 02:00 06/05/17 01:59 Nitroglycerin (Nitrostat Tab) 0.4 mg UD PRN SL 05/06/17 02:00 06/05/17 01:59 Nitroglycerin (Nitroglycerin 2% Oint) 1 inch Q6H EXT 05/06/17 04:00 06/05/17 03:59 05/07/17 10:49 1 INCH Aspirin (Ecotrin Tab) 81 mg QAM PO 05/06/17 09:00 06/05/17 08:59 05/07/17 08:31 81 MG HCTZ/Lisinopril (Prinzide 20-12.5MG Tab) 1 tab BID PO 05/06/17 09:00 06/05/17 08:59 05/07/17 08:30 1 TAB Levothyroxine Sodium (Synthroid Tab) 112 mcg DAILYBB PO 05/06/17 06:30 06/05/17 06:29 05/07/17 06:10 112 MCG Potassium Chloride (Klor-Con M10) 20 meq DAILY PO 05/06/17 09:00 06/05/17 08:59 05/07/17 08:33 20 MEQ Ferrous Fumarate (Mariaelena-Sequels Contr Rel Cap) 65 mg DAILY PO 05/06/17 09:00 06/05/17 08:59 05/07/17 08:33 65 MG Cholecalciferol (Vitamin D Tab) 5,000 inter.unit QAM PO 05/06/17 09:00 06/05/17 08:59 05/07/17 08:31 5,000 INTER.UNIT Magnesium Oxide (Mag-Ox Tab) 400 mg BID PO 05/06/17 09:00 06/05/17 08:59 05/07/17 08:33 400 MG Heparin Sodium/ Dextrose 500 ml @ 22 mls/hr [id number] PRN IV 05/06/17 02:30 06/05/17 02:29 05/06/17 22:38 22 MLS/HR Miscellaneous (Iv Fluids Completed) 1 ea PRN PRN N/A 05/06/17 03:45 05/06/18 03:44 Objective Vital Signs Date Time Temp Pulse Resp B/P (MAP) Pulse Ox O2 Delivery O2 Flow Rate FiO2 05/07/17 15:25 36.4 78 16 112/73 (86) 96 05/07/17 12:00 Room Air 05/07/17 11:33 36.4 64 16 124/80 (95) 94 05/07/17 08:00 Room Air 05/07/17 07:46 36.6 72 18 145/82 (103) 94 Room Air 05/07/17 05:33 36.4 61 18 132/69 (90) 94 Room Air 05/07/17 04:23 Room Air 05/07/17 00:25 36.4 54 18 108/61 (77) 93 Room Air 05/07/17 00:17 Room Air 05/06/17 20:19 36.5 63 18 119/71 (87) 94 Room Air 05/06/17 19:38 Room Air 05/06/17 16:00 Room Air Physical Exam General Appearance: WD/WN, no apparent distress Neck: supple, no adenopathy, no JVD, trachea midline Respiratory/Chest: chest non-tender, lungs clear, normal breath sounds, no respiratory distress, no accessory muscle use Cardiovascular: regular rate, rhythm, no edema, no gallop, no JVD, no murmur Abdomen: normal bowel sounds, non tender, soft, no organomegaly Extremities: normal range of motion, non-tender, normal inspection, no pedal edema, no calf tenderness, pelvis stable 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, no motor/sensory deficits, alert, normal mood/affect, oriented x 3 Skin: normal color, warm/dry, no rash Lymphatic: no adenopathy Laboratory Results Last 24 Hours Test 05/06/17 18:35 05/07/17 07:55 Total Creatine Kinase 67 U/L Creatine Kinase MB 1.9 ng/ml Creatine Kinase MB Ratio 2.8 Troponin I < 0.015 ng/ml White Blood Count 6.68 K/uL Red Blood Count 4.35 M/uL Hemoglobin 13.6 g/dL Hematocrit 39.3 % Mean Corpuscular Volume 90.3 fL Mean Corpuscular Hemoglobin 31.3 pg Mean Corpuscular Hemoglobin Concent 34.6 g/dl RDW Standard Deviation 41.8 fL RDW Coefficient of Variation 12.7 % Platelet Count 271 K/uL Mean Platelet Volume 9.9 fL Activated Partial Thromboplast Time 55.1 SECONDS Partial Thromboplastin Ratio 2.1 Assessment and Plan 66 yo female who presented with chest pain, intermittent, prior to admission had a nuclear stress test as outpatient that was abnormal - Chest pain with recent abnormal nuclear stress test continues to be chest pain free, walking in the halls will continue on aspirin, heparin gtt over the weekend troponin negative x 3 no significant changes on EKG plan for LHC on Tuesday 05/09, NPO after midnight on Tuesday night - HTN: Lisinopril/HCTZ - Dyslipidemia: patient has refused statins in the past - Hypothyroidism: continue Synthroid full code
[2017-05-07] MEDS: HEPARIN 25,000 UNIT/500ML D5W 500 ML IV PRN (20:00)
[2017-05-08] VITALS (8 sets, daily range): BP systolic 110–135; BP diastolic 69–81; PULSE 61–80; TEMP 36.3–36.9; O2SAT 95–96
[2017-05-08] MEDS: NITROGLYCERIN 2% OINTMENT 30GM TUBE EXT SCH ×4 (04:55→22:06)
[2017-05-08] MEDS: LEVOTHYROXINE 112 MCG TAB PO SCH (06:13)
[2017-05-08 08:03] LABS: HEMATOCRIT 41.9 % (37-47); HEMOGLOBIN 14.2 g/dL (12.0-16.0); MEAN CELL VOLUME 91.1 fL (80-100); MEAN CORPUSCULAR HEMOGLOBIN 30.9 pg (25-34); MEAN CORPUSCULAR HGB CONC 33.9 g/dl (32-36); MEAN PLATELET VOLUME 10.4 fL (7.4-10.4); PLATELET COUNT 309 K/uL (130-400); RED CELL DISTRIBUTION WIDTH CV 12.6 % (11.5-14.5); RED CELL DISTRIBUTION WIDTH SD 41.9 fL (36.4-46.3); WHITE BLOOD COUNT 5.82 K/uL (4.8-10.8)
[2017-05-08 08:22] LABS: PTT PATIENT 57.1 SECONDS (21.0-31.0)
[2017-05-08] MEDS: ASPIRIN 81 MG ECTAB PO SCH (09:44)
[2017-05-08] MEDS: MAGNESIUM OXIDE 400 MG TAB PO SCH ×2 (09:45→20:34)
[2017-05-08] MEDS: FERROUS FUMARATE CONTR REL CAP 65 MG CAPCR PO SCH (09:45)
[2017-05-08] MEDS: CHOLECALCIFEROL 1000 INTER.UNIT TAB PO SCH (09:45)
[2017-05-08] MEDS: POTASSIUM CHLORIDE 10 MEQ TABCR PO SCH (09:46)
[2017-05-08] MEDS: LISINOPRIL/HCTZ 20/12.5MG TAB PO SCH ×2 (09:46→20:34)
--- NOTE | 2017-05-08 10:13 | Progress Note ---
Subjective Date of Service: May 08, 2017. Subjective Pt evaluation today including: conversation w/ patient, physical exam, review of inpatient medication list Pain: no chest pain PO Intake: adequate Voiding: no voiding problems no new issues asking to shower ready for [facility] tomorrow Problem List Medical Problems: (1) Abnormal nuclear stress test Status: Acute (2) Substernal chest pain Status: Acute Review of Systems All Other Systems: Reviewed and Negative Medications Current Inpatient Medications Medications (Trade) Dose Ordered Sig/Andrew Route Start Time Stop Time Status Last Admin Dose Admin Acetaminophen (Tylenol Tab) 650 mg Q4H PRN PO 05/06/17 02:00 06/05/17 01:59 Nitroglycerin (Nitrostat Tab) 0.4 mg UD PRN SL 05/06/17 02:00 06/05/17 01:59 Nitroglycerin (Nitroglycerin 2% Oint) 1 inch Q6H EXT 05/06/17 04:00 06/05/17 03:59 05/08/17 04:55 1 INCH Aspirin (Ecotrin Tab) 81 mg QAM PO 05/06/17 09:00 06/05/17 08:59 05/08/17 09:44 81 MG HCTZ/Lisinopril (Prinzide 20-12.5MG Tab) 1 tab BID PO 05/06/17 09:00 06/05/17 08:59 05/08/17 09:46 1 TAB Levothyroxine Sodium (Synthroid Tab) 112 mcg DAILYBB PO 05/06/17 06:30 06/05/17 06:29 05/08/17 06:13 112 MCG Potassium Chloride (Klor-Con M10) 20 meq DAILY PO 05/06/17 09:00 06/05/17 08:59 05/08/17 09:46 20 MEQ Ferrous Fumarate (Mariaelena-Sequels Contr Rel Cap) 65 mg DAILY PO 05/06/17 09:00 06/05/17 08:59 05/08/17 09:45 65 MG Cholecalciferol (Vitamin D Tab) 5,000 inter.unit QAM PO 05/06/17 09:00 06/05/17 08:59 05/08/17 09:45 5,000 INTER.UNIT Magnesium Oxide (Mag-Ox Tab) 400 mg BID PO 05/06/17 09:00 06/05/17 08:59 05/08/17 09:45 400 MG Heparin Sodium/ Dextrose 500 ml @ 22 mls/hr [id number] PRN IV 05/06/17 02:30 06/05/17 02:29 05/07/17 20:00 22 MLS/HR Miscellaneous (Iv Fluids Completed) 1 ea PRN PRN N/A 05/06/17 03:45 05/06/18 03:44 Objective Vital Signs Date Time Temp Pulse Resp B/P (MAP) Pulse Ox O2 Delivery O2 Flow Rate FiO2 05/08/17 04:43 36.3 65 18 127/70 (89) 96 Room Air 05/08/17 04:05 96 Room Air 05/08/17 00:05 96 Room Air 05/07/17 23:51 36.2 69 21 103/66 (78) 96 Room Air 05/07/17 20:00 96 Room Air 05/07/17 19:47 36.6 82 18 124/74 (91) 96 Room Air 05/07/17 16:00 Room Air 05/07/17 15:25 36.4 78 16 112/73 (86) 96 05/07/17 12:00 Room Air 05/07/17 11:33 36.4 64 16 124/80 (95) 94 Physical Exam General Appearance: WD/WN, no apparent distress Eyes: normal inspection, EOMI, sclerae normal ENT: normal ENT inspection, hearing grossly normal, pharynx normal Neck: supple, no adenopathy, no JVD, trachea midline Respiratory/Chest: chest non-tender, lungs clear, normal breath sounds, no respiratory distress, no accessory muscle use Cardiovascular: regular rate, rhythm, no edema, no gallop, no JVD, no murmur Abdomen: normal bowel sounds, non tender, soft, no organomegaly Extremities: normal range of motion, non-tender, normal inspection, no pedal edema, no calf tenderness 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, no motor/sensory deficits, alert, normal mood/affect, oriented x 3 Skin: normal color, warm/dry, no rash Lymphatic: no adenopathy Laboratory Results Last 24 Hours Test 05/08/17 06:51 White Blood Count 5.82 K/uL Red Blood Count 4.60 M/uL Hemoglobin 14.2 g/dL Hematocrit 41.9 % Mean Corpuscular Volume 91.1 fL Mean Corpuscular Hemoglobin 30.9 pg Mean Corpuscular Hemoglobin Concent 33.9 g/dl RDW Standard Deviation 41.9 fL RDW Coefficient of Variation 12.6 % Platelet Count 309 K/uL Mean Platelet Volume 10.4 fL Activated Partial Thromboplast Time 57.1 SECONDS Partial Thromboplastin Ratio 2.2 Assessment and Plan 66 yo female who presented with chest pain, intermittent, prior to admission had a nuclear stress test as outpatient that was abnormal - Chest pain with recent abnormal nuclear stress test continues to be chest pain free, walking in the halls will continue on aspirin, heparin gtt over the weekend troponin negative x 3 no significant changes on EKG plan for LHC on Tuesday 05/09, NPO after midnight on Tuesday night - HTN: Lisinopril/HCTZ - Dyslipidemia: patient has refused statins in the past - Hypothyroidism: continue Synthroid may shower today full code
--- NOTE | 2017-05-08 11:32 | CARDIOLOGY PROGRESS NOTE ---
DATE: 05/08/2017 CARDIOLOGY CONSULTATION FOLLOWUP NOTE The patient seen and examined. Chart, medications, telemetry reviewed. SUBJECTIVE: The patient had no further chest pains or discomfort overnight. Overall, feels well. Notes no fevers, chills or sweats. OBJECTIVE: VITAL SIGNS: Heart rate 65, blood pressure is 127/70. NECK: Thin. There is no jugular venous distention. There are no carotid bruits. LUNGS: Clear to auscultation. CARDIOVASCULAR: Regular with normal S1, S2. There is no murmur, gallop or rub. ABDOMEN: Soft, nontender. EXTREMITIES: Without cyanosis or clubbing. There is no peripheral edema. NEUROLOGIC: The patient is intact. LABORATORY DATA: White cell count is 5.8, hemoglobin is 14.2. IMPRESSION: A 66-year-old female with abnormal stress test, chest pain, anticoagulated with heparin. PLAN: Cardiac catheterization in the a.m. Procedure and risks explained in detail with the patient. The patient will be kept n.p.o. after midnight. We will need to transfer IV from right wrist to left arm if possible, anticipated attempted radial approach.
[2017-05-08] MEDS: HEPARIN 25,000 UNIT/500ML D5W 500 ML IV PRN (20:32)
[2017-05-09] VITALS (11 sets, daily range): BP systolic 118–141; BP diastolic 68–83; PULSE 54–67; TEMP 36.3–36.8; O2SAT 95–98
[2017-05-09] MEDS: NITROGLYCERIN 2% OINTMENT 30GM TUBE EXT SCH ×2 (04:09→10:00)
[2017-05-09 05:57] LABS: HEMATOCRIT 38.9 % (37-47); HEMOGLOBIN 13.2 g/dL (12.0-16.0); MEAN CORPUSCULAR HEMOGLOBIN 30.6 pg (25-34); MEAN CORPUSCULAR HGB CONC 33.9 g/dl (32-36); MEAN PLATELET VOLUME 10.2 fL (7.4-10.4); PLATELET COUNT 268 K/uL (130-400); RED CELL DISTRIBUTION WIDTH CV 12.4 % (11.5-14.5); WHITE BLOOD COUNT 5.61 K/uL (4.8-10.8)
[2017-05-09] MEDS: LEVOTHYROXINE 112 MCG TAB PO SCH ×2 (06:30→08:42)
[2017-05-09] MEDS: ASPIRIN 81 MG ECTAB PO SCH (08:41)
[2017-05-09] MEDS: FERROUS FUMARATE CONTR REL CAP 65 MG CAPCR PO SCH (08:41)
[2017-05-09] MEDS: CHOLECALCIFEROL 1000 INTER.UNIT TAB PO SCH (08:42)
[2017-05-09] MEDS: POTASSIUM CHLORIDE 10 MEQ TABCR PO SCH (08:42)
[2017-05-09] MEDS: MAGNESIUM OXIDE 400 MG TAB PO SCH (08:42)
[2017-05-09] MEDS: LISINOPRIL/HCTZ 20/12.5MG TAB PO SCH (08:42)
[2017-05-09] MEDS ORDERED: NiCARDipine HCL INJ 2.5 MG/ML 10 ML AMP ONE (09:09)
[2017-05-09] MEDS ORDERED: HEPARIN SOD (PORCINE) 1000 UNIT/ML 10 ML VIAL ONE (09:09)
[2017-05-09] MEDS ORDERED: MIDAZOLAM HCL 1 MG/ML 2ML VIAL ONE (09:09)
[2017-05-09] MEDS ORDERED: FENTANYL CITRATE INJ 50 MCG/1 ML 2 ML VIAL ONE (09:09)
[2017-05-09] MEDS ORDERED: NITROGLYCERIN/D5W 100MCG/ML 20ML SYR ONE (09:09)
--- NOTE | 2017-05-09 10:26 | Pre Sedation Assessment ---
Pre Sedation Assessment General Date of Sedation: May 09, 2017. Vital Signs Past 12 Hours Date Time Temp Pulse Resp B/P (MAP) Pulse Ox O2 Delivery O2 Flow Rate FiO2 05/09/17 10:17 60 18 130/80 (97) 98 Room Air 05/09/17 10:09 60 18 124/80 (95) 98 Room Air 05/09/17 08:40 67 05/09/17 07:45 Room Air 05/09/17 07:10 36.4 56 20 125/70 (88) 96 Room Air 05/09/17 04:40 36.3 62 20 118/75 (89) 95 Room Air 05/09/17 04:00 Room Air 05/09/17 00:00 Room Air 05/08/17 22:47 36.4 65 16 110/69 (83) 96 Room Air Review Cardiovascular: regular rate, rhythm, no edema, no gallop, no JVD Lungs: chest non-tender, lungs clear Pre-Sedation Airway Assessment Smoking Status: Never Smoker Hx of Sleep Apnea: No Short Thick Neck: No Thyro-mental Distance: > 3 Finger Breadths Oral Cavity: WNL Mallampati Classification: Class II ASA Classification: Class II NPO Status Date of Last Intake of Fluids: May 08, 2017 Time of Last Intake of Fluids: 2300 Date of Last Intake of Solids: May 08, 2017 Time of Last Intake of Solids: 2300 Procedure Planning Contraindications for Sedation: None Current Medications Reviewed: Yes Notes The planned sedation has been discussed with the patient. Informed Consent was obtained. I have identified the patient, determined the appropriateness of sedation and have assessed the patient immediately prior to the procedure. All medicine(s) and interventions are by my order.
--- NOTE | 2017-05-09 10:38 | [facility] Post Operative Brief Note ---
Preliminary Procedure Note Procedure Date May 09, 2017. Pre-Procedure Diagnosis Positive Stress Test AUC Score 7 Post-Procedure Diagnosis Mild CAD Procedure(s) Performed Coronary Angiography, Left Heart Cath, LV Angiography Fire [employer] Dr. Brent Valdes Licensed Staff Mft(s) Tom García Estimated Blood Loss <20cc Medication(s) Fentanyl (12.5 mcg IV), Heparin (2000u IV), Nicardipine (250mcg intraarterial after sheath insertion), Versed (1mg IV), Lidocaine 1% (local infiltration) Preliminary Findings Large caliber right dominant coronary anatomy LM very upward takeoff, short LAD Type III 20% mid vessel at D1 with D1 taper at origin 20% otherwise normal LCx Large OM, no disease RCA Large dominant, no disease Normal LV function EF 65%, no MR Recommendations Medical therapy and/or Counseling Specimens None Fluids (cc crystalloids) 72 Anesthesia Start 0941 Stop 1009 M Huan ALLRED Procedural Complication(s) None Disposition PCU
[2017-05-09] MEDS ORDERED: SODIUM CHLORIDE 0.9% 1000ML 250 ML IV PRN (10:39)
[2017-05-09] MEDS ORDERED: ATROPINE SULFATE 0.1 MG/ML 5ML SYR IV PRN (10:45)
[2017-05-09] MEDS ORDERED: ACETAMINOPHEN 325 MG TAB PO PRN (10:45)
--- NOTE | 2017-05-09 12:47 | CARDIAC CATH REPORT ---
REFERRING: Dr. Nir Smith. PRIMARY CARE PHYSICIAN: Dr. Sriram Beckman. INDICATIONS: Chest pain and abnormal stress testing. HISTORY OF PRESENT ILLNESS: The patient is a 67-year-old female, who was notably evaluated after newly diagnosed left bundle branch block found in outpatient testing. Stress nuclear study was performed, which was reflective of apical ischemia. The patient was continued to have intermittent chest discomfort. In light of findings, the patient was referred for hospitalization. Symptoms initially occurred with rest and were relieved by nitroglycerin. She has remained on anticoagulation prior to referral for cardiac catheterization. There is no evidence of myocardial infarction or congestive heart failure. PROCEDURE: Left heart catheterization, coronary and LV angiography. ACCESS: Right radial artery. CATHETERS: A 6-Indonesian slender sheath, a 5-Indonesian brachial 3.5, a 5-Indonesian JL 3.5, and a 5-Indonesian straight pigtail. CONTRAST: Nonionic 114 mL. IV FLUIDS: 72 mL normal saline. SEDATION: Start time 09:41. End time 10:09. SUPERVISING: Noemi Pressley RN MEDICATIONS RECEIVED: Versed 1 mg IV and fentanyl 12.5 mcg IV. ADDITIONAL MEDICATIONS: Local infiltration to access site with 1% lidocaine, nicardipine 250 mcg intra-arterial after radial sheath inserted, and heparin 2000 units IV administered after central access gained. COMPLICATIONS: None. RADIATION EXPOSURE: 3.7 minutes of fluoroscopy, 971 milligrays, DAP score 6512. RESULTS: CORONARY ANGIOGRAPHY: Coronary anatomy is large in caliber and right dominant. LEFT MAIN: The left main has a very upward takeoff and a short in length. It trifurcates to give rise to left anterior descending, a small ramus intermedius and a large type 3 left anterior descending. There is no disease or calcification in the left main. LEFT ANTERIOR DESCENDING: Left anterior descending is type 3 in distribution. It gives rise to a moderately large diagonal branch in its mid proximal third followed by a large diagonal branch opposite to large septal branch at the end of its proximal third and then courses to terminate beyond the apex. Left anterior descending is large in caliber and has a 20% narrowing at the origin of the first diagonal and extending into the origin of the diagonal branch itself, narrowing it by 20%. This may represent a physiologic taper risk of atherosclerotic changes with very mild narrowing noted. There is no disease in the distal vessel. RAMUS INTERMEDIUS: The ramus intermedius is modest in caliber and free of disease. LEFT CIRCUMFLEX: Left circumflex consists of a large obtuse marginal, which trifurcates and reaches well to the lateral apex and a small AV groove portion. There is no disease in the left circumflex. RIGHT CORONARY ARTERY: Right coronary artery is very large and dominant. It gives rise to conus branch and a sinoatrial branch at its origin and an early takeoff posterior descending, and along the AV groove to a long posterolateral branches. There is no disease in the right coronary artery. LEFT VENTRICULAR ANGIOGRAPHY: The left ventricle was nondilated. Left ventricular systolic function was normal, EF 65%. There is no mitral insufficiency. HEMODYNAMICS: Initial aortic root pressure was 113/53 with a mean of 76. Following coronary angiography, LV pressure was 138/3 with EDP of 14. On pullback to the aortic root following LV angiography, there was no transaortic valve gradient. Closing aortic root pressure was 120/65 with a mean of 89. FINAL IMPRESSIONS: 1. Right dominant coronary anatomy. 2. Very mild coronary atherosclerosis of 20% at the origin of the first diagonal branch extending into the origin of that branch. Findings may represent physiologic taper versus atherosclerotic disease. 3. No other coronary atherosclerosis or obstruction noted with large caliber vessels. 4. Normal left ventricular systolic function, ejection fraction 65%. 5. Normal left end diastolic pressures. RECOMMENDATIONS: Continued risk factor modification.
[2017-05-09] MEDS ORDERED: SODIUM CHLORIDE 0.9% 1000ML 1,000 ML IV SCH ×2 (13:30)
--- NOTE | 2017-05-09 14:45 | Discharge Instructions ---
Discharge Instructions Procedure Procedure Date: May 09, 2017. Reason for Visit: Abnormal Nuclear Stress Test,Substernal Chest Pain. Discharge Discharge Date: May 09, 2017. Discharge Diagnosis: No significant coronary artery disease, LBBB, HTN, Abnormal stress Problem List: Medical Problems: (1) Abnormal nuclear stress test Status: Acute (2) Substernal chest pain Status: Acute Last Recorded Wt (Kilograms): 67.900 Anesthesia Post Anesthesia Instructions: If you have had General Anesthesia or IV Sedation: * Do not drive today. * Resume driving when surgeon permits. * Do not make important decisions or sign legal documents today. * Call surgeon for: 1. Temperature elevations greater than 101 degrees F. 2. Uncontrollable pain. 3. Excessive bleeding. 4. Persistent nausea and vomiting. 5. Medication intolerance (nausea, vomiting or rash). * For nausea and vomiting use only clear liquids such as: tea, soda, bouillon until nausea subsides, then gradually increase diet as tolerated. * If you have any concerns or questions, call your surgeon's office. If physician is unavailable and it is an emergency, call 911 or go to the nearest emergency room. Instructions Activity Recommendations: limitations as noted below Recommended Home Diet: resume previous diet Allergies: Coded Allergies: Codeine (Verified Allergy, Severe, "COULDN'T SLEEP FOR 3 DAYS-HYPER"., 03/12) [place] [facility] (Verified Allergy, Unknown, "CAN'T REMEMBER", 05/05/17) Erythrosine Red No. 3 (Verified Allergy, Unknown, "CAN'T REMEMBER", ) Guaifenesin (Verified Allergy, Unknown, "CAN'T REMEMBER", 05/05/17) Pseudoephedrine (Verified Allergy, Unknown, "CAN'T REMEMBER", 05/05/17) Provider Instructions ACTIVITY RECOMMENDATIONS: Excess manipulation of the wrist should be avoided for the next 24-48 hours. * No lifting over 2 pounds (approximately a 1/2 gallon of milk) with the utilized arm for 24 hours. * No strenuous activity such as bowling or tennis for 3 days. * Keep the site of the procedure covered with a bandage for 24 hours. *You may shower the day after the procedure. Do not take a tub bath or submerge the puncture site in water for the next 3 days. *Do not operate any motorized equipment for 3 days. SPECIAL CARE INSTRUCTIONS: The site may be slightly bruised and sore following your procedure. Should any of the following occur, contact the Dr. who performed your procedure. 1. Redness/inflammation, swelling, chills, or fever, or colored drainage at procedure site within 3-7 days after your procedure. 2. Coldness, discoloration, ongoing numbness, severe pain, or swelling. Expect mild tingling of hand and tenderness at the puncture site for up to three days. If this persists beyond three days, or other symptoms develop, notify the Dr. who performed your procedure. BLEEDING: If the procedure site on your wrist begins to bleed, do not panic 1. Place 1 or 2 fingers firmly just slightly above the insertion site to stop the bleeding. You may be able to feel your pulse as you hold pressure. 2. Lift your finger after 5 minutes to see if the bleeding has stopped. 3. Once the bleeding has stopped, gently wipe the wrist area clean with a bandage. * If the bleeding from your wrist does not stop after 10 minutes, or if there is a large amount of bleeding or spurting, call 911 (do not drive yourself to the hospital). SKIN IRRITATION: * You may experience some redness and/or swelling in the area where radiation was administered. If any skin irritation occurs, please contact your family physician. FOLLOW UP VISIT: Keep any scheduled doctor appointments. Follow Up Yoav Chavez Recommendations: Call your doctor if: * Temperature above 101 degrees * Pain not relieved by pain medicine ordered * There is increased drainage or redness from any incision * You have any unanswered questions or concerns. Your Doctors Instructions noted above were prepared by provider Brent Valdes. Patient Signature Section: Patient Instructions Signature Page Kerri Ly Patient (or Guardian) Signature/Date: I have read and understand the instructions given to me by my caregivers. Caregiver/RN/Doctor Signature/Date: The above-named patient and/or guardian has received patient instructions on this date. + Original Patient Signature Page (only) stays with chart. Please make copy for patient.
[2017-05-09] MEDS ORDERED: SODIUM CHLORIDE 0.9% 500ML 500 ML IV STA (15:06)
--- NOTE | 2017-05-09 15:07 | Discharge Instructions ---
Discharge Instructions Date of Service May 09, 2017. Admission Reason for Admission: Abnormal Nuclear Stress Test,Substernal Chest Pain Discharge Discharge Diagnosis / Problem: Abnormal stress test/ Normal Cath Discharge Goals Goal(s): Decrease discomfort, Improve function Activity Recommendations Activity Limitations: as noted below Lifting Limitations: gradually increase as tolerated . Instructions / Follow-Up Instructions / Follow-Up F/U with PCP in 1-[address] Beckman on TuesdayMay 16 9:45am ACTIVITY RECOMMENDATIONS: Excess manipulation of the wrist should be avoided for the next 24-48 hours. * No lifting over 2 pounds (approximately a 1/2 gallon of milk) with the utilized arm for 24 hours. * No strenuous activity such as bowling or tennis for 3 days. * Keep the site of the procedure covered with a bandage for 24 hours. *You may shower the day after the procedure. Do not take a tub bath or submerge the puncture site in water for the next 3 days. *Do not operate any motorized equipment for 3 days. SPECIAL CARE INSTRUCTIONS: The site may be slightly bruised and sore following your procedure. Should any of the following occur, contact the Dr. who performed your procedure. 1. Redness/inflammation, swelling, chills, or fever, or colored drainage at procedure site within 3-7 days after your procedure. 2. Coldness, discoloration, ongoing numbness, severe pain, or swelling. Expect mild tingling of hand and tenderness at the puncture site for up to three days. If this persists beyond three days, or other symptoms develop, notify the Dr. who performed your procedure. BLEEDING: If the procedure site on your wrist begins to bleed, do not panic 1. Place 1 or 2 fingers firmly just slightly above the insertion site to stop the bleeding. You may be able to feel your pulse as you hold pressure. 2. Lift your finger after 5 minutes to see if the bleeding has stopped. 3. Once the bleeding has stopped, gently wipe the wrist area clean with a bandage. * If the bleeding from your wrist does not stop after 10 minutes, or if there is a large amount of bleeding or spurting, call 911 (do not drive yourself to the hospital). SKIN IRRITATION: * You may experience some redness and/or swelling in the area where radiation was administered. If any skin irritation occurs, please contact your family physician. FOLLOW UP VISIT: Keep any scheduled doctor appointments. Current Hospital Diet Patient's current hospital diet: AHA Diet (Heart Healthy) Discharge Diet Recommended Diet: AHA Diet (Heart Healthy) Pending Studies Studies pending at discharge: no Laboratory Results Hemoglobin A1c Test 05/06/17 05:41 Range/Units Estimated Average Glucose 114 mg/dl Hemoglobin A1c 5.6 4.5-5.6 % Lipid Panel Test 05/06/17 05:41 Range/Units Triglycerides Level 84 0-150 mg/dl Cholesterol Level 206 H 0-200 mg/dl HDL Cholesterol 53 mg/dl Cholesterol/HDL Ratio 3.9 LDL Cholesterol, Calculated 136 mg/dl Medical Emergencies . Who to Call and When: Medical Emergencies: If at any time you feel your situation is an emergency, please call 911 immediately. . Non-Emergent Contact Non-Emergency issues call your: Primary Care Provider Call Non-Emergent contact if: you have any medication questions . . "Provider Documentation" section prepared by Raji Regan. . VTE Core Measure Inpt VTE Proph given/why not?: Other Anticoagulation (heparin IV standard dose no bolus per protocol)
--- NOTE | 2017-05-09 15:08 | CARDIOLOGY PROGRESS NOTE ---
DATE: 05/09/2017 CARDIOLOGY CONSULTATION FOLLOWUP NOTE The patient seen and examined. Chart, medications, telemetry reviewed. SUBJECTIVE: The patient feels well, underwent diagnostic cardiac catheterization this morning without obstructive coronary artery disease discerned with only minimal narrowing of the left anterior descending of 20% or less. Notes no difficulties postprocedure. OBJECTIVE: VITAL SIGNS: Heart rate is 54, blood pressure is 141/75. NECK: Thin. There is no jugular venous distention. There is no carotid bruits. LUNGS: Clear to auscultation. CARDIOVASCULAR: Regular. There is no S3 gallop. ABDOMEN: Soft, nontender. EXTREMITIES: Without cyanosis or clubbing. There is no peripheral edema. Right radial puncture sites with bandage and no bleeding. IMPRESSION: 1. Chest pain without coronary artery ischemia etiology. 2. Chronic left bundle-branch block. 3. Longstanding hypertension. 4. Minimal coronary artery luminal irregularities without obstruction. RECOMMENDATIONS: Continue prehospital medications. Follow up with Dr. Smith as planned. Post-cath instructions has been reviewed may return to work in 3 days. No strenuous activity x3 days. Call or go to the ER if sudden swelling or bleeding in the right wrist develops. MTDD
--- NOTE | 2017-05-09 15:17 | Discharge Summary ---
Discharge Summary Date of Service May 09, 2017. Discharge Summary Admission Date: May 06, 2017 at 14:14 Discharge Date: May 09, 2017 Discharge Disposition: Home Principal Diagnosis: Abnormal stress test Immunizations: Have You Had Influenza Vaccine: Unknown History of Tetanus Vaccine?: Unknown History of Pneumococcal: Unknown History of Hepatitis B Vaccine: Unknown Procedures: DICTATED BY: Brent Valdes M.D. REFERRING: Dr. Nir Smith. PRIMARY CARE PHYSICIAN: Dr. Sriram Beckman. INDICATIONS: Chest pain and abnormal stress testing. HISTORY OF PRESENT ILLNESS: The patient is a 67-year-old female, who was notably evaluated after newly diagnosed left bundle branch block found in outpatient testing. Stress nuclear study was performed, which was reflective of apical ischemia. The patient was continued to have intermittent chest discomfort. In light of findings, the patient was referred for hospitalization. Symptoms initially occurred with rest and were relieved by nitroglycerin. She has remained on anticoagulation prior to referral for cardiac catheterization. There is no evidence of myocardial infarction or congestive heart failure. PROCEDURE: Left heart catheterization, coronary and LV angiography. ACCESS: Right radial artery. CATHETERS: A 6-Stateless slender sheath, a 5-Stateless brachial 3.5, a 5-Stateless JL 3.5, and a 5-Stateless straight pigtail. CONTRAST: Nonionic 114 mL. IV FLUIDS: 72 mL normal saline. SEDATION: Start time 09:41. End time 10:09. SUPERVISING: Noemi Pressley RN MEDICATIONS RECEIVED: Versed 1 mg IV and fentanyl 12.5 mcg IV. ADDITIONAL MEDICATIONS: Local infiltration to access site with 1% lidocaine, nicardipine 250 mcg intra-arterial after radial sheath inserted, and heparin 2000 units IV administered after central access gained. COMPLICATIONS: None. RADIATION EXPOSURE: 3.7 minutes of fluoroscopy, 971 milligrays, DAP score 6512. RESULTS: CORONARY ANGIOGRAPHY: Coronary anatomy is large in caliber and right dominant. LEFT MAIN: The left main has a very upward takeoff and a short in length. It trifurcates to give rise to left anterior descending, a small ramus intermedius and a large type 3 left anterior descending. There is no disease or calcification in the left main. LEFT ANTERIOR DESCENDING: Left anterior descending is type 3 in distribution. It gives rise to a moderately large diagonal branch in its mid proximal third followed by a large diagonal branch opposite to large septal branch at the end of its proximal third and then courses to terminate beyond the apex. Left anterior descending is large in caliber and has a 20% narrowing at the origin of the first diagonal and extending into the origin of the diagonal branch itself, narrowing it by 20%. This may represent a physiologic taper risk of atherosclerotic changes with very mild narrowing noted. There is no disease in the distal vessel. RAMUS INTERMEDIUS: The ramus intermedius is modest in caliber and free of disease. LEFT CIRCUMFLEX: Left circumflex consists of a large obtuse marginal, which trifurcates and reaches well to the lateral apex and a small AV groove portion. There is no disease in the left circumflex. RIGHT CORONARY ARTERY: Right coronary artery is very large and dominant. It gives rise to conus branch and a sinoatrial branch at its origin and an early takeoff posterior descending, and along the AV groove to a long posterolateral branches. There is no disease in the right coronary artery. LEFT VENTRICULAR ANGIOGRAPHY: The left ventricle was nondilated. Left ventricular systolic function was normal, EF 65%. There is no mitral insufficiency. HEMODYNAMICS: Initial aortic root pressure was 113/53 with a mean of 76. Following coronary angiography, LV pressure was 138/3 with EDP of 14. On pullback to the aortic root following LV angiography, there was no transaortic valve gradient. Closing aortic root pressure was 120/65 with a mean of 89. FINAL IMPRESSIONS: 1. Right dominant coronary anatomy. 2. Very mild coronary atherosclerosis of 20% at the origin of the first diagonal branch extending into the origin of that branch. Findings may represent physiologic taper versus atherosclerotic disease. 3. No other coronary atherosclerosis or obstruction noted with large caliber vessels. 4. Normal left ventricular systolic function, ejection fraction 65%. 5. Normal left end diastolic pressures. RECOMMENDATIONS: Continued risk factor modification. Consultations: DATE OF CONSULTATION: 05/06/2017 REFERRING PHYSICIAN: Talib Thapa MD. REASON FOR CONSULTATION: Chest pain. HISTORY OF PRESENT ILLNESS: Ms. Ly is a 66-year-old female who is known to the [facility]. I recently evaluated the patient on April 08. At that time, the patient had been complaining of intermittent dyspnea on exertion. She has a newly diagnosed left bundle branch block. A nuclear stress test was performed on 05/05/2017 and was positive for apical ischemia. Last evening at approximately 11:00 p.m., patient contacted me via phone. She was complaining of chest discomfort. She was advised to come to the Emergency Department. In the ER, she was treated with sublingual nitroglycerin with relief of her discomfort. She is currently pain free. Her ECG demonstrated sinus rhythm with lateral T-wave inversion. Normal LV systolic function with normal wall motion noted per nuclear stress test performed yesterday. An echocardiogram was not performed today. Her cardiac enzymes are negative. No dysrhythmias on telemetry. She carries a history of rate related bundle branch block. REVIEW OF SYSTEMS: The pertinent positive noted above, a comprehensive 10-system review is otherwise negative. PAST MEDICAL HISTORY: 1. Mild carotid vascular disease. 2. Rate related left bundle branch block. 3. Hypothyroidism. 4. Hypertension. 5. Aortic insufficiency -- mild. 6. Colon polyp. 7. Breast hypertrophy. 8. Hypothyroidism. 9. Chronic fatigue. PAST SURGICAL HISTORY: 1. Colonoscopy. 2. Breast reduction surgery. SOCIAL HISTORY: Lifelong nonsmoker. She does not use alcohol or drugs. FAMILY HISTORY: Negative for premature coronary artery disease or sudden cardiac . ALLERGIES: ETHANOL. OUTPATIENT MEDICATIONS: 1. Zestoretic 20/12.5 twice daily. 2. Metformin ER 500 mg daily. 3. Synthroid 112 mcg daily. 4. Doxycycline 100 mg twice daily. 5. Premarin cream twice weekly. 6. Potassium chloride 10 mEq, 2 tablets daily. 7. Gulliver 3 fatty acids daily. 8. Aspirin 81 mg daily. ECHOCARDIOGRAM ON ADMISSION: Sinus bradycardia, lateral T-wave inversion. LABORATORY DATA: White blood cell count 8.54, hemoglobin is 14.0, platelet count is 305. Troponins are negative x3 sets. Triglycerides are 84, total cholesterol is 206, LDL is 136, HDL is 53. APTT 42.2 this morning. Hemoglobin A1c is 5.6. Hepatitis screen is negative. Chest x-ray on admission: No acute disease. PHYSICAL EXAMINATION: VITAL SIGNS: Temperature of 36.5 degrees centigrade, pulse 64 beats per minute and regular, respiratory rate is 18 breaths per minute, blood pressure 127/72, SaO2 is 96% on room air. GENERAL: NAD, awake, alert and oriented x3. HEENT: Mucous membranes are moist. No scleral icterus. Conjunctivae are pink. NECK: Supple without JVD or HJR. No carotid bruit. HEART: Regular with a normal S1 and S2. There is no murmur, rub, or gallop. LUNGS: Clear without rales, rhonchi or wheeze. ABDOMEN: Soft, nontender. No rebound or guarding. NEUROLOGIC: Demonstrates no focal deficit. FINAL IMPRESSION: 1. A 66-year-old female with unstable angina and abnormal Lexiscan, nuclear stress test performed yesterday is positive for apical ischemia. The patient currently chest-pain free. Cardiac enzymes are negative. 2. Preserved left ventricular systolic function with normal wall motion. 3. Mild aortic insufficiency. 4. Dyslipidemia -- untreated, patient has declined statin therapy in the past. 5. Mild carotid vascular disease per history. 6. Intermittent left bundle branch block. PLAN AND RECOMMENDATIONS: I had a long discussion with the patient regarding her symptoms and results of Lexiscan nuclear stress testing suggesting ischemic heart disease. I have recommended cardiac catheterization with coronary angiography and possible percutaneous intervention if indicated. She is reluctant to proceed with procedure. She is declining procedure at [facility] due to lack of surgical backup at this facility. The patient will be transferred to [facility] for cardiac catheterization. She will continue intravenous heparin infusion at this time. She will also continue aspirin. Statins will be added. Telemetry monitoring will be continued. Thank you for allowing me to participate in the care of your patient. Medication Reconciliation Continued Medications: Cholecalciferol (Vitamin D3) 5,000 Unit Cap 5000 CAP PO DAILY Ferrous Fumarate (Ferrimin 150) 150 Mg Tab 150 MG PO DAILY Hctz/Lisinopril (PRINZIDE 20/12.5 Mg) 1 Ea Tab 1 TAB PO BID, TAB Levothyroxine Sodium (Synthroid) 112 Mcg Tab 112 MCG PO DAILY, TAB Magnesium Oxide (Mg Supplement (Magnesium) 500 Mg Tab 1000 MG PO DAILY Potassium Chloride (Micro-K Ext Rel) 10 Meq Capcr 20 MEQ PO DAILY, 0 Refills Discontinued Medications: Ascorbic Acid (Vitamin C) 1,000 Mg Tab 2000 MG PO DAILY Turmeric (Curcuma Longa) (Turmeric) Unknown Strength Tab 1 TAB PO DAILY Discharge Exam Review of Systems: Constitutional: No fever, No chills ENT: No hearing loss, No unusual epistaxis Respiratory: No cough, No sputum Cardiovascular: No chest pain, No orthopnea Abdomen: No pain, No nausea Musculoskeletal: No joint pain Neurologic: No memory loss, No paralysis Psychiatric: No depression symptoms Endocrine: No fatigue Hematologic / Lymphatic: No abnormal bleeding/bruising Integumentary: No rash Physical Exam: General Appearance: WD/WN, no apparent distress ENT: normal ENT inspection Neck: supple, no adenopathy Respiratory/Chest: chest non-tender, lungs clear, normal breath sounds Cardiovascular: regular rate, rhythm, no edema, no JVD Abdomen / GI: normal bowel sounds, non tender, soft Extremities: normal inspection Neurologic/Psychiatric: alert, oriented x 3 Skin: normal color Lymphatic: no adenopathy Hospital Course History of Present Illness Source: patient, hospital records The patient is a 66-year-old female who had a chemical stress test performed earlier in the day by account development manager Dr. Smith, that she felt had gone well. Later in the day, she developed severe left sided chest pain, had then called her account development manager, who then referred her to the ED immediately after reviewing the above-mentioned stress test and reportedly had an abnormal finding. The patient did receive nitroglycerin in the ED, that she reports did help. Earlier in the day she had taken Advil without relief. She does have a family history of a sister who had to have a coronary artery stent placed. Hospital course. 66 yo female who presented with chest pain, intermittent, prior to admission had a nuclear stress test as outpatient that was abnormal - Chest pain with recent abnormal nuclear stress test During hospital stay, patient was chest pain free, walking in the halls was treated with aspirin, heparin gtt troponin negative x 3 Heparin was then stopped no significant changes on EKG [facility]. Results are noted above. - HTN: Lisinopril/HCTZ - Dyslipidemia: patient has refused statins in the past - Hypothyroidism: continue Synthroid Total Time Spent: Greater than 30 minutes This includes examination of the patient, discharge planning, medication reconciliation, and communication with other providers. Discharge Instructions Please refer to the electronic Patient Visit Report (Discharge Instructions) for additional information. Follow-Up F/U with PCP in 1-[address] Beckman on TuesdayMay 16 9:45am ACTIVITY RECOMMENDATIONS: Excess manipulation of the wrist should be avoided for the next 24-48 hours. * No lifting over 2 pounds (approximately a 1/2 gallon of milk) with the utilized arm for 24 hours. * No strenuous activity such as bowling or tennis for 3 days. * Keep the site of the procedure covered with a bandage for 24 hours. *You may shower the day after the procedure. Do not take a tub bath or submerge the puncture site in water for the next 3 days. *Do not operate any motorized equipment for 3 days. SPECIAL CARE INSTRUCTIONS: The site may be slightly bruised and sore following your procedure. Should any of the following occur, contact the Dr. who performed your procedure. 1. Redness/inflammation, swelling, chills, or fever, or colored drainage at procedure site within 3-7 days after your procedure. 2. Coldness, discoloration, ongoing numbness, severe pain, or swelling. Expect mild tingling of hand and tenderness at the puncture site for up to three days. If this persists beyond three days, or other symptoms develop, notify the Dr. who performed your procedure. BLEEDING: If the procedure site on your wrist begins to bleed, do not panic 1. Place 1 or 2 fingers firmly just slightly above the insertion site to stop the bleeding. You may be able to feel your pulse as you hold pressure. 2. Lift your finger after 5 minutes to see if the bleeding has stopped. 3. Once the bleeding has stopped, gently wipe the wrist area clean with a bandage. * If the bleeding from your wrist does not stop after 10 minutes, or if there is a large amount of bleeding or spurting, call 911 (do not drive yourself to the hospital). SKIN IRRITATION: * You may experience some redness and/or swelling in the area where radiation was administered. If any skin irritation occurs, please contact your family physician. FOLLOW UP VISIT: Keep any scheduled doctor appointments. Additional Copies To Sriram Beckman Jr, D.O.
== END 2017-05-09 17:30 | disposition home or self-care (01) | DRG 303 ==
LOC: C.EDB 22:16 → C.MED 05-06 01:20 → ENRESERV 05-06 01:36 → OBSVTOIN 05-06 14:14 → C.MED 05-07 09:35 → ENRESERV 05-09 09:52 → C.2T 05-09 10:38
PROVIDERS: ADMIT Hospitalist; ATTEND Internal Medicine
DX: I25.110 Atherosclerotic heart disease of native coronary artery with unstable angina pectoris (principal); I10 Essential (primary) hypertension; Z82.49 Family history of ischemic heart disease and other diseases of the circulatory system; Z87.891 Personal history of nicotine dependence; E03.9 Hypothyroidism, unspecified; I44.7 Left bundle-branch block, unspecified; R94.39 Abnormal result of other cardiovascular function study

== ENCOUNTER → 2017-08-31 | Outpatient (CLI) | payer OTHER ==
[~2017-08-31] MED LIST changes: +CHOLCAP5 PO; +FERRTAB6 PO; -FRRG PO; -FRRS300 PO; +LEVO112T2 PO; -LISI20TA PO; +LSN/20125 PO; +MAGN500T4 PO; -OXYC1TAB3 PO; -PRM/45 PO; -REVIEWED; -SYN125 PO
[2017-08-31 16:38] LABS: INFLUENZA B ANTIGEN Neg for Influ B (NEG)
== END | disposition home or self-care (01) ==
LOC: C.LAB 15:09
DX: J02.9 Acute pharyngitis, unspecified (principal)

== ENCOUNTER → 2017-12-15 | Outpatient (CLI) | payer OTHER ==
[~2017-12-15] MED LIST changes: +LISI20TA9 PO; -LSN/20125 PO
--- NOTE | 2017-12-15 08:52 | DIAGNOSTIC IMAGING REPORT ---
SOFT TISS HEAD/NECK-THYROID CLINICAL HISTORY: 67 years-old Female with THYROID NODULE, COMPARE TO 06/28/13. COMPARISON: Thyroid ultrasound 06/28/2013 TECHNIQUE: Multiple real time sonographic images of the thyroid were obtained accessing bella scale appearance and color doppler flow. FINDINGS: MEASUREMENTS: Right lobe: 2.3 x 0.8 x 0.6 cm Left lobe: 3.4 x 1.0 x 1.1 cm Isthmus: 0.2 cm PARENCHYMA: The thyroid parenchymal echotexture is diffusely heterogeneous. NODULES: Ill-defined heterogeneous area within the upper pole right thyroid is mildly hypoechoic and contains nonshadowing calcifications measuring 1.0 x 0.6 x 0.8 cm suggesting a nodule, previously measuring 1.2 x 1.1 x 0.5 cm. There is a low suspicion slightly hypoechoic ovoid circumscribed nodule of the lower pole left thyroid, 0.8 x 0.5 x 0.6 cm, previously measuring 0.6 x 0.3 x 0.4 cm. IMPRESSION: 1. Multinodular heterogeneous appearance of the thyroid. 2. Hypoechoic nodule with microcalcifications within the upper pole right thyroid measuring up to 1.1 cm appears unchanged from 06/28/2013. The above report was generated using voice recognition software. It may contain grammatical, syntax or spelling errors. Electronically signed by: Rainer Nevarez M.D. 12/15/2017 8:51 AM Dictated Date/Time: 12/15/2017 8:46 AM
== END | disposition home or self-care (01) ==
LOC: C.ULTRBC 07:49
DX: E04.2 Nontoxic multinodular goiter (principal)